=== PATIENT | male | born 1950 | race Caucasian/White ===

== ENCOUNTER 2021-01-02 07:54 | Emergency (ER) | payer MEDICARE, BC ==
[2021-01-02 08:06] VITALS: BP 173/87; PULSE 73
--- NOTE | 2021-01-02 08:44 | EDM.PDOC ---
ED HPI GENERAL MEDICAL PROBLEM - General Chief Complaint: Upper Extremity Injury/Pain Stated Complaint: LEFT ARM NUMBNESS Time Seen by Provider: 01/02/21 08:06 Source of Information: Reports: Patient History Limitations: Reports: No Limitations - History of Present Illness INITIAL COMMENTS - FREE TEXT/NARRATIVE: 70-year-old male presents to the emergency department complaints of left hand numbness and tingling to all 5 digits. Patient states he slept with his left arm above his head last night and woke this morning with forearm numbness down to his fingertips. He states that has resolved however he complains of decreased tester regulator strength to the left hand. Numbness and tingling have resolved in his thumb and partially in his left index finger however still remains in his third fourth and fifth digits. States that this is happened in the past however it usually resolves within about an hour or so of waking. Denies any slurred speech, facial droop, or weakness to the lower extremity. - Related Data Allergies Allergy/AdvReac Type Severity Reaction Status Date / Time No Known Allergies Allergy Verified 01/02/21 08:06 Home Meds: Home Meds Acetaminophen [Acetaminophen Extra Strength] 1,000 mg PO BID 01/02/21 [History] Aspirin [Aspirin EC] 81 mg PO DAILY 01/02/21 [History] Folic Acid 1 mg PO DAILY 01/02/21 [History] InFLIXimab [Remicade] 100 mg IV ASDIRECTED 01/02/21 [History] metHOTREXate sodium [Methotrexate] 12.5 mg PO FR 01/02/21 [History] Past Medical History Musculoskeletal History: Reports: RA Oncologic (Cancer) History: Reports: Basal Cell Carcinoma Social & Family History - Tobacco Use Tobacco Use Status *Q: Never Tobacco User - Recreational Drug Use Recreational Drug Use: No Review of Systems - Review of Systems Review Of Systems: Comprehensive ROS is negative, except as noted in HPI. ED EXAM, GENERAL - Physical Exam Exam: See Below Exam Limited By: No Limitations General Appearance: Alert, WD/WN, No Apparent Distress Eye Exam: Bilateral Eye: EOMI, PERRL Ears: Normal External Exam, Hearing Grossly Normal Nose: Normal Inspection Throat/Mouth: Normal Inspection, Normal Voice, No Airway Compromise Head: Atraumatic, Normocephalic Neck: Normal Inspection, Supple, Full Range of Motion, Tender Lateral Respiratory/Chest: No Respiratory Distress, Lungs Clear, Normal Breath Sounds, No Accessory Muscle Use, Chest Non-Tender Cardiovascular: Normal Peripheral Pulses, No Edema Peripheral Pulses: 2+: Radial (L), Radial (R) (Male) Exam: Deferred Rectal (Males) Exam: Deferred Back Exam: Normal Inspection, Full Range of Motion, Paraspinal Tenderness Extremities: Normal Inspection, Normal Range of Motion, Non-Tender, No Pedal Edema, Normal Capillary Refill, Other (reports parasthesia to 3, 4, and 5 digits on left hand with decreased tester regulator strength) Neurological: Alert, Oriented, CN II-XII Intact, Normal Cognition, Normal Gait, Normal Reflexes, No Motor/Sensory Deficits Psychiatric: Normal Affect, Normal Mood Skin Exam: Warm, Dry, Intact, Normal Color, No Rash Lymphatic: No Adenopathy Course - Vital Signs Text/Narrative:: On assessment, neuro exam is unremarkable other than numbness and tingling and decreased strength to digits 3-5 on left hand. Tuyere Fitter strength is decreased in left hand. Phalen test and tinel test are unremarkable. Equal strength is noted to upper extremities. Pt does have cervical paraspinal tenderness noted. He does report "neck" stiffness and pain when sitting up to read or work on his computer. States that he has seen the chiropractor regarding this. I have ordered a CT scan of the cervical spine. Last Recorded V/S: Last Vital Signs Temp 97.0 F 01/02/21 08:02 Pulse 73 01/02/21 08:02 Resp 16 01/02/21 08:02 BP 173/87 H 01/02/21 08:02 Pulse Ox 96 01/02/21 08:02 - Radiology Interpretation Free Text/Narrative:: CT of the cervical spine radiology impression: 1. Degenerative changes as noted above most prominent at C5-C6. Shows fairly severe disc space narrowing. The re is a moderate right-sided neural foraminal stenosis and mild left-sided neural foraminal stenosis at this level. - Re-Assessments/Exams Free Text/Narrative Re-Assessment/Exam: 01/02/21 10:13 CT scan just shows some disc space narrowing, patient likely needs an MRI. We'll discharge him from the emergency department and have him follow-up with Dr. August Taylor in the clinic. Departure - Departure Time of Disposition: 10:14 Disposition: Home, Self-Care 01 Condition: Fair Clinical Impression: Hand paresthesia Qualifiers: Laterality: left Qualified Code(s): R20.2 - Paresthesia of skin - Discharge Information Referrals: Paluino Emmanuel MD [Primary Care Provider] - Forms: ED Department Discharge Additional Instructions: You're seen in the emergency department today with complaints of left hand numbness and tingling specifically in your left third fourth and fifth finger. This resulted from sleeping with your left arm over your head last night. CT scan was performed and showed some disc space narrowing in your cervical spine however there is nothing that would specifically pinpoint the cause of the numbness and tingling. You will likely need an MRI to follow-up on this. Recommend that you schedule an appointment with Dr. Gentile as soon as possible. Sepsis Event Note (ED) - Evaluation Sepsis Screening Result: No Definite Risk - Focused Exam Vital Signs: Vital Signs Temp Pulse Resp BP Pulse Ox 01/02/21 08:02 97.0 F 73 16 173/87 H 96
--- NOTE | 2021-01-02 09:45 | CT ---
CT cervical spine Technique: Multiple axial sections were obtained from above C1 inferiorly to the top of T2. Reconstructed coronal and sagittal images were obtained. Comparison: Prior cervical spine study obtained during CT study of the soft tissue neck dated 07/13/13. Findings: Small amount of ligamentum nuchal calcification is noted within the posterior soft tissue. C3-4 level shows mild right-sided neural foraminal stenosis. C4-5 level shows a prominent posterior spur which appears detached. No central canal stenosis or neural foraminal stenosis is seen. C5-6 level shows fairly severe disc space narrowing. There is moderate right-sided neural foraminal stenosis and mild left-sided neural foraminal stenosis at this level. There is slight endplate concavity of T1 which is felt to be old. Other vertebral body heights are maintained. No acute fracture is appreciated. Mild scattered degenerative change is noted throughout the apophyseal joints. Spurring is noted within the uncovertebral joints which is most prominent at C5-6. Impression: 1. Degenerative change as noted above most prominent at C5-6. 2. Nothing acute is seen. Diagnostic code #3
== END 2021-01-02 10:32 | disposition home or self-care (01) ==
LOC: JD.ED 07:54
DX: R20.2 Paresthesia of skin (principal); M06.9 Rheumatoid arthritis, unspecified; Z79.82 Long term (current) use of aspirin; Z79.899 Other long term (current) drug therapy
CPT/HCPCS: 72125; 72125-26; 99284; 99284-25